=== PATIENT | male | born 1995 | race African-American/Black ===

== ENCOUNTER 2017-06-26 14:06 | Emergency (ER) | payer BC, SELFPAY ==
[2017-06-26] MEDS ORDERED: Ibuprofen 200 MG TAB ONE (14:47)
== END 2017-06-26 15:09 | disposition home or self-care (01) ==
LOC: ERS 14:06
DX: R51 Headache (principal); V43.52XA Car driver injured in collision with other type car in traffic accident, initial encounter
CPT/HCPCS: 99283